=== PATIENT | female | born 1970 | race Caucasian/White ===

== ENCOUNTER → 2020-08-29 | Day surgery (SDC) | payer OTHER ==
[~2020-08-29] VITALS: Ht 162.6 cm; Wt 63.5 kg
[~2020-08-29] MED LIST: FLEXERIL5 MG PO; PRISTIQ50 MG PO
[2020-08-29 07:28] LABS: HCG (URINE) SCREEN NEGATIVE (NEGATIVE)
[2020-08-29 07:49] LABS: HCT 43.9 % (37.0-47.0); HGB 14.8 g/dl (12.5-16.0); MCH 30.3 pg (25.0-31.0); MCHC 33.7 g/dL (32.0-36.0); MCV 89.8 fL (78.0-100.0); MPV 10.7 fL (6.0-9.5); RBC 4.89 M/uL (4.20-5.40); RDW 12.8 % (11.5-14.0); WBC 12.5 K/uL (4.0-10.5)
[2020-08-29 08:04] LABS: ALBUMIN 4.2 g/dL (3.4-5.0); BILIRUBIN - TOTAL 0.5 mg/dL (0.2-1.0); BUN/CREAT RATIO (CALC) 16.2 RATIO; CREATININE 0.74 mg/dL (0.51-0.95); GLOBULIN (CALCULATION) 3.2 g/dL; POTASSIUM 3.4 mmol/L (3.5-5.1); TOTAL PROTEIN 7.4 g/dL (6.4-8.2)
== END | disposition home or self-care (01) ==
LOC: FAS 07:00
PROVIDERS: Surgery
DX: R19.5 Other fecal abnormalities (principal); K58.9 Irritable bowel syndrome, unspecified; K64.8 Other hemorrhoids; F32.9 Major depressive disorder, single episode, unspecified; Z86.010 Personal history of colon polyps; Z87.891 Personal history of nicotine dependence; Z79.899 Other long term (current) drug therapy
CPT/HCPCS: 36415; 80053; 84703; J2250; J2704; J7120